=== PATIENT | male | born 1955 | race Caucasian/White ===

== ENCOUNTER 2017-03-11 12:33 | Emergency (ER) | payer OTHER ==
[~2017-03-11] VITALS: Ht 170.2 cm; Wt 81.6 kg
[2017-03-11 12:40] VITALS: BP 147/63
[2017-03-11 13:11] LABS: CALCIUM 7.9 mg/dL (8.5-10.1); CARBON DIOXIDE 30.3 mmol/L (21-32); CHLORIDE SERUM 103 mmol/L (98-107); CREATININE SERUM 0.7 mg/dL (0.7-1.3); GFR1 > 60 mL/min; GLUCOSE SERUM 102 mg/dL (74-106); POTASSIUM SERUM 3.7 mmol/L (3.5-5.1); SODIUM SERUM 141 mmol/L (136-145)
== END 2017-03-11 14:10 | disposition home or self-care (01) ==
LOC: ED 12:33
PROVIDERS: Emergency Medicine
DX: R06.00 Dyspnea, unspecified (principal); I10 Essential (primary) hypertension; F17.200 Nicotine dependence, unspecified, uncomplicated; Z72.89 Other problems related to lifestyle
CPT/HCPCS: 36415; Q0092

== ENCOUNTER 2018-08-07 16:16 | Emergency (ER) | payer OTHER ==
[~2018-08-07] VITALS: Ht 167.6 cm; Wt 99.8 kg
[2018-08-07 16:25] VITALS: Ht 167.6 cm; Wt 99.8 kg
[2018-08-07 16:48] LABS: PLATELET COUNT 253 x10^3mcL (130-400); RED CELL DISTRIBUTION WIDTH 13.7 % (11.5-14.5)
[2018-08-07 16:50] LABS: BASOPHIL % 0 % (0-2)
[2018-08-07 16:58] LABS: CALCIUM 8.3 mg/dL (8.5-10.1); CARBON DIOXIDE 35.3 mmol/L (21-32); CHLORIDE SERUM 102 mmol/L (98-107); CREATININE SERUM 0.7 mg/dL (0.7-1.3); GFR1 > 60 mL/min; GLUCOSE SERUM 105 mg/dL (74-106); POTASSIUM SERUM 3.5 mmol/L (3.5-5.1); SODIUM SERUM 142 mmol/L (136-145)
[2018-08-07 17:03] LABS: ALKALINE PHOSPHATASE 117 U/L (46-116); ALT/SGPT 25 U/L (16-63); AST/SGOT 27 U/L (15-37); BILIRUBIN TOTAL 0.51 mg/dL (0.20-1.00); TOTAL PROTEIN, SERUM 6.3 g/dL (6.4-8.2)
[2018-08-07 17:11] LABS: ALBUMIN 2.9 g/dL (3.4-5.0)
[2018-08-07 17:32] LABS: AMPHETAMINE QUAL UR NONE DETECTED (See below)
[2018-08-08 14:42] VITALS: BP 120/66
== END 2018-08-08 14:42 ==
LOC: ED 16:16
PROVIDERS: Emergency Medicine
DX: R45.851 Suicidal ideations (principal); R53.1 Weakness; I10 Essential (primary) hypertension; F41.9 Anxiety disorder, unspecified; F31.9 Bipolar disorder, unspecified; F20.9 Schizophrenia, unspecified; F17.210 Nicotine dependence, cigarettes, uncomplicated
CPT/HCPCS: 36415; G0480